=== PATIENT | female | born 1980 | race Caucasian/White ===

== ENCOUNTER 2019-02-12 01:03 | Emergency (ER) | payer OTHER ==
[~2019-02-12] VITALS: Ht 167.6 cm; Wt 115.7 kg
[2019-02-12 01:21] VITALS: BP_SYST 152
[2019-02-12] MEDS ORDERED: LOSA50TA3 PO (01:26)
[2019-02-12] MEDS ORDERED: HYDR12.55 PO (01:27)
[2019-02-12] MEDS ORDERED: HYDR25TA4 PO (01:29)
--- NOTE | 2019-02-12 01:30 | NUR ---
Patient to ER bed h1 to gown for evaluation. Side rails up.
--- NOTE | 2019-02-12 02:00 | NUR ---
ER at bedside examining patient.
--- NOTE | 2019-02-12 02:10 | NUR ---
Pt cam eot the ED for a cat bite on L 1st finger. Reports that her cat is a young kitten when she was playing with the kitten and it bit her. Reports that kitten has received only part of its immunzations, such as rabies. Denies n/v/d or fever. No other complaints/injuries noted. Will cont. to monitor.
--- NOTE | 2019-02-12 03:00 | NUR ---
Pt resting comfortably in bed, no signs of acute distress. Will cont. to monitor.
[2019-02-12] MEDS: AMOXICILLIN/CLAVULANATE POTASSIUM 875 MG TABLET PO ONE (04:25)
[2019-02-12 04:34] VITALS: BP_SYST 152
[2019-02-12] MEDS: DIPH-TET-PERTUS Vaccine 0.5 ML VIAL (ADACEL) I.M. ONE (04:49)
--- NOTE | 2019-02-12 04:59 | NUR ---
Patient given written and verbal discharge instructions and verbalizes understanding. ER MD discussed with patient the results and treatment provided. Patient in stable condition. ID arm band removed. Rx of Augmentin given. Patient educated on pain management and to follow up with PMD. Pain Scale 0. Opportunity for questions provided and answered. Medication side effect fact sheet provided.
[2019-02-12] MEDS ORDERED: DIPH-TET-PERTUS Vaccine 0.5 ML VIAL (ADACEL) I.M. ONE (05:00)
== END 2019-02-12 04:59 | disposition home or self-care (01) ==
LOC: SED 01:03
DX: S61.052A Open bite of left thumb without damage to nail, initial encounter (principal); W55.01XA Bitten by cat, initial encounter; Y93.89 Activity, other specified; Y92.89 Other specified places as the place of occurrence of the external cause; Y99.8 Other external cause status
CPT/HCPCS: 90715; 99283